=== PATIENT | female | born 1975 | race African-American/Black ===

== ENCOUNTER 2018-06-18 13:39 | Emergency (ER) | payer OTHER ==
[~2018-06-18] VITALS: Ht 177.8 cm; Wt 188.7 kg
--- NOTE | 2018-06-18 13:49 | EKG ---
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 : 1975 Requested By: Juan Lopez Order Number: [id number] MD: Jimmy He Measurements Intervals [place] Rate: 93 P: 54 CA: 153 QRS: -7 QRSD: 121 T: 41 QT: 409 QTc: 509 Interpretive Statements Sinus rhythm Left ventricular hypertrophy No previous ECG available for comparison Electronically Signed On 06-18-2018 13:49:11 DESK REPORTER by Jimmy He [email or web address] ��������������������������������������������� <ELECTRONICALLY SIGNED> ���������������������������������������� By: Jimmy He MD ��������������������������������������������� 06/18/18 1349 1346 1346 Jimmy He MD /EPI
[2018-06-18 14:45] LABS: ABSOLUTE NEUTROPHILS 3.5 thou/uL (1.4-8.2); BASOPHILS 0.9 % (0.0-2.0); EOSINOPHILS 1.6 % (0.0-3.0); HEMATOCRIT 34.1 % (37.0-47.0); LYMPHOCYTES 29.8 % (24.0-44.0); MCHC 32.1 g/dL (28.0-37.0); MONOCYTES 8.5 % (1.0-8.0); PLATELET COUNT 406 thou/uL (150-400); POLYS 59.2 % (36.0-66.0); RBC 4.06 mil/uL (4.20-5.00); RDW 16.5 % (10.5-14.5)
[2018-06-18 14:55] LABS: ANION GAP 8 mmol/L (7-16); BUN 11 mg/dL (7-18); CALCIUM 9.2 mg/dL (8.5-10.1); CHLORIDE 101 mmol/L (98-107); CO2 30 mmol/L (21-32); CREATININE 0.7 mg/dL (0.6-1.0); GLUCOSE 108 mg/dL (74-106); POTASSIUM 4.1 mmol/L (3.5-5.1); SODIUM 139 mmol/L (136-145)
[2018-06-18 15:03] LABS: ALBUMIN 3.3 g/dL (3.4-5.0); LIPASE 85 U/L (73-393); SGOT 14 U/L (15-37); SGPT 21 U/L (30-65); TOTAL BILIRUBIN 0.2 mg/dL (<0.1-1.0); TOTAL PROTEIN 7.9 g/dL (6.4-8.2); TROPONIN-I <0.06 ng/mL (<0.06)
[2018-06-18 16:09] LABS: URINE BLOOD 3+ (Negative); URINE CLARITY CLOUDY; URINE COLOR RED; URINE GLUCOSE-RANDOM* NEGATIVE (Negative); URINE KETONES NEGATIVE (Negative); URINE LEUKOCYTES-REFLEX TRACE (Negative); URINE NITRITE-REFLEX NEGATIVE (Negative); URINE PROTEIN (DIPSTICK) 1+ (Negative); URINE SPECIFIC GRAVITY 1.025 (1.005-1.035); URINE UROBILINOGEN 0.2 E.U./dl (0.2-1.0)
[2018-06-18 16:10] LABS: ICTOTEST (BILI CONFIRMATORY) Negative (Negative); URINE BILIRUBIN NEGATIVE (Negative)
[2018-06-18 16:18] LABS: BACTERIA-REFLEX 1-9 Few /HPF (None Seen); CASTS None Seen /LPF (None Seen); CRYSTALS None Seen /LPF (None Seen); SQUAMOUS 0-3 Few /LPF (0-3); URINE RBC >20 Many /HPF (0-2); URINE WBC-REFLEX 0-5 Rare /HPF (0-5)
[2018-06-18 17:21] VITALS: BP 143/65
[2018-06-19] MEDS ORDERED: VENLAFAXINE HC150 M1 PO (20:23)
[2018-06-19] MEDS ORDERED: XANAX 0.5 MG0.5 MG PO (20:24)
[2018-06-19] MEDS ORDERED: NORCO 5-325 TA1 EACH PO (23:04)
[2018-06-19] MEDS ORDERED: IBUPROFEN 800800 M1 PO (23:05)
[2018-06-19] MEDS ORDERED: VENTOLIN HFA 1818 GM INH (23:06)
== END 2018-06-18 17:28 | disposition home or self-care (01) ==
LOC: ER 13:39
PROVIDERS: Emergency Medicine
DX: K42.9 Umbilical hernia without obstruction or gangrene (principal); Z88.8 Allergy status to other drugs, medicaments and biological substances

== ENCOUNTER 2018-06-19 18:55 | Inpatient (IN) | payer OTHER ==
[~2018-06-19] VITALS: Ht 177.8 cm; Wt 180.1 kg
[2018-06-19 18:58] VITALS: BP 172/111
[2018-06-19] MEDS ORDERED: VENLAFAXINE HC150 M1 PO (20:23)
[2018-06-19] MEDS ORDERED: XANAX 0.5 MG0.5 MG PO (20:24)
[2018-06-19] MEDS ORDERED: NORCO 5-325 TA1 EACH PO (23:04)
[2018-06-19] MEDS ORDERED: IBUPROFEN 800800 M1 PO (23:05)
[2018-06-19] MEDS ORDERED: VENTOLIN HFA 1818 GM INH (23:06)
--- NOTE | 2018-06-19 23:20 | NUR ---
AFTER MULTIPLE LABS ATTEMPS BY MULTIPLE NURSE/EMT AND LAB X2. NO LABS WERE ABLE TO BE OBTAINE. ER PHYSICIAN NOTIFED AND AWARE. PT WAS OFFERED NG TUBE TO HELP WITH HER SYMPOMS AND PT DECLINED.
[2018-06-19 23:31] VITALS: BP 147/81
[2018-06-19 23:50] VITALS: BP 147/81
[2018-06-20 00:12] VITALS: BP 130/95
--- NOTE | 2018-06-20 04:05 | NUR ---
PT ARRIVED TO UNIT APPROX 2350, ABLE TO WALK FROM W/C TO BED, ADMISSION AND ASSESSMENT COMPLETED, CONSENTS SIGNED. PT A&Ox4, ANXIOUS ABOUT POC, DISCUSSED EXPECTED TREATMENT OPTIONS INCLUDING THE SURGEON'S ORDER FOR AN NG TUBE. PT REPORTS PAIN JUST ABOVE THE NAVEL WHERE A FIRM MASS IS PROTRUDING WELL THE LLQ OF THE ABD. ALSO C/O NAUSEA; INITIALLY UPON ARRIVAL HAD SMALL AMOUNT OF EMESIS, BUT LATER VOMITED 500 ML DARK BROWN LIQUID. GAVE DOSE OF ZOFRAN. OBTAINED ORDER FOR ONE TIME DOSE IV ATIVAN AND WAS ABLE TO PLACE AN 18g NG TUBE INTO THE RIGHT NARE, INITIAL PLACEMENT AT 60 CM, POSITIVE FOR AUSCULTATED BUBBLE BUT AWAITING FINAL CONFIRMATION BY KUB, CURRENTLY HOOKED TO LIS WITH SMALL AMOUNT OF BROWN LIQUID OUTPUT. IV FLUIDS INFUSING. ER AND LAB UNABLE TO GET BLOOD SPECIMEN, LAB REPORTED THEY WILL TRY AGAIN THIS AM. MAINTAINING NPO STATUS, NO OTHER CONCERNS, WILL CONTINUE TO MONITOR.
[2018-06-20 04:50] VITALS: BP 145/90
[2018-06-20 05:05] LABS: BASOPHILS 0.3 % (0.0-2.0); EOSINOPHILS 0.2 % (0.0-3.0); HEMATOCRIT 33.7 % (37.0-47.0); HEMOGLOBIN 11.2 gm/dL (12.0-15.0); LYMPHOCYTES 14.8 % (24.0-44.0); MCH 27.7 pg (26.0-34.0); MCHC 33.3 g/dL (28.0-37.0); MCV 83.1 fL (80.0-100.0); MONOCYTES 6.8 % (1.0-8.0); PLATELET COUNT 456 thou/uL (150-400); POLYS 77.9 % (36.0-66.0); RBC 4.06 mil/uL (4.20-5.00); RDW 16.4 % (10.5-14.5); WBC 11.5 thou/uL (4.0-11.0)
[2018-06-20 05:20] LABS: ALBUMIN 3.3 g/dL (3.4-5.0); CALCIUM 9.4 mg/dL (8.5-10.1); CREATININE 0.7 mg/dL (0.6-1.0); DIRECT BILIRUBIN 0.1 mg/dL (<0.1-0.3); POTASSIUM 4.1 mmol/L (3.5-5.1); TOTAL BILIRUBIN 0.7 mg/dL (<0.1-1.0); TOTAL PROTEIN 8.1 g/dL (6.4-8.2)
[2018-06-20 07:44] VITALS: BP 135/83
[2018-06-20 14:08] VITALS: BP 133/73
--- NOTE | 2018-06-20 15:15 | NUR ---
PT ADMITTED RELATED TO HERNIA, SBO. CM REVIEWED CHART AND SPOKE WITH CARE TEAM. CM MET WITH PT AT BEDSIDE THIS DAY. PT IS A&OX4. CM ROLE INTRODUCED. PT INDICATED SHE LIVES IN A HOUSE WITH HER SPOUSE AND THEIR TWO CHILDREN. PT INDICATED THERE ARE 5 STEPS TO ENTER AND 5 STEPS INSIDE. 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 PT INDICATED NO DME OR HH HX. PT'S PCP IS DR. MINE WOLFF AT [facility]. PT INDICATED SHE IS PATIENT PAY AND IS RECEPTIVE TO MEETING WITH [employer]. FACESHEET FAXED. PT INDICATED SHE PLANS TO RETURN HOME ONCE MEDICALLY STABLE. CM TO FOLLOW INDICATED WITH DC PLANNING.
--- NOTE | 2018-06-20 15:47 | NUR ---
PT WENT TO OR AT 0700 AND RETURNED TO ROOM AT 1335 ALERT AND IN NO ACUTE DISTRESS. PT DOING WELL. PAIN UNDER CONTROL. REMAINS NPO. NG TO LIS W/ BROWN OUTPUT. IRRIGATED FOR PATENTCY. IV FLUIDS INFUSING. VSS. WILL AMBULATE IN HALLS LATER ON. PARENTS AT BEDSIDE.
[2018-06-20 16:12] VITALS: BP 147/91
[2018-06-20 19:41] VITALS: BP 141/81
[2018-06-21 05:27] VITALS: BP 136/74
[2018-06-21 06:12] LABS: ABSOLUTE NEUTROPHILS 10.6 thou/uL (1.4-8.2); BASOPHILS 0.4 % (0.0-2.0); EOSINOPHILS 0.3 % (0.0-3.0); HEMATOCRIT 32.3 % (37.0-47.0); HEMOGLOBIN 10.3 gm/dL (12.0-15.0); LYMPHOCYTES 16.8 % (24.0-44.0); MCH 27.1 pg (26.0-34.0); MCV 84.9 fL (80.0-100.0); MONOCYTES 9.8 % (1.0-8.0); PLATELET COUNT 391 thou/uL (150-400); POLYS 72.7 % (36.0-66.0); WBC 14.6 thou/uL (4.0-11.0)
[2018-06-21 06:23] LABS: CALCIUM 8.4 mg/dL (8.5-10.1); CREATININE 0.8 mg/dL (0.6-1.0); POTASSIUM 3.8 mmol/L (3.5-5.1)
[2018-06-21 07:16] VITALS: BP 131/60
--- NOTE | 2018-06-21 07:16 | NUR ---
Gallegos out; patient WBC elevated, the staff rechecked patient's temperature due to the concern of infection risk, see the chart.
--- NOTE | 2018-06-21 11:59 | NUR ---
ASSUMED PATIENT CARE AT 0715 A.M. PATIENT STATED NO PAIN AT THAT TIME. IV FLUID RUNNING, NS 100CC/HR, NG SUCTION RUNNING EFFECTIVELY, O2 TUBING IN PLACE AND ON. NURSE ASSISTED PATIENT TO BR WITH WALKER AT 0745 A.M. PATIENT CLEANSED PERINEAL AREA PER SELF, ON MENSTRUAL PERIOD. ADMINISTERED FENTNYL 50 MCG FOR PAIN, IV PUSH AT 10:45 A.M. PATIENT RESTING COMFORTABLY AT THIS TIME. CONTINUE TO MONITOR.
--- NOTE | 2018-06-21 13:14 | NUR ---
VERBAL ORDER PER SURGEON; DC NG TUBE, CHANGE DIET TO LIQUID DIET. NG TUBE DISCONTINUED AT THIS TIME. DIET ORDER CHANGED TO LIQUID.
--- NOTE | 2018-06-21 16:07 | NUR ---
IV FLUIDS DISCONTINUED PER ORDER OF 06/20/18, S.L IN PLACE RIGHT FOREARM. R HAND IV S.L. DISCONTINUED.
[2018-06-21 16:22] VITALS: BP 121/59
[2018-06-21 20:30] VITALS: BP 125/92
--- NOTE | 2018-06-21 22:19 | NUR ---
ASSUMED PT CARE 190. PT ALERT AND ORIENTED. DENIES PAIN AT THIS TIME. PT DENIES N/V. TOLERATING CLEAR LIQUID DIET WELL. IV DRESSING C/D/I, NO SIGNS OF INFILTRATION. PT REPORTS PASSING GAS. PT CALL LIGHT AND PERSONAL BELONINGS OLIVIA CASTELLANO, WILL CONTINUE POC UNTIL EOS.
[2018-06-22 04:30] VITALS: BP 111/48; BP 143/70
[2018-06-22 05:46] LABS: ABSOLUTE NEUTROPHILS 7.1 thou/uL (1.4-8.2); BASOPHILS 0.4 % (0.0-2.0); EOSINOPHILS 1.9 % (0.0-3.0); HEMATOCRIT 32.8 % (37.0-47.0); HEMOGLOBIN 10.4 gm/dL (12.0-15.0); LYMPHOCYTES 23.3 % (24.0-44.0); MCHC 31.8 g/dL (28.0-37.0); MCV 84.8 fL (80.0-100.0); MONOCYTES 8.9 % (1.0-8.0); PLATELET COUNT 340 thou/uL (150-400); POLYS 65.5 % (36.0-66.0); RBC 3.87 mil/uL (4.20-5.00); RDW 16.8 % (10.5-14.5); WBC 10.9 thou/uL (4.0-11.0)
[2018-06-22 05:58] LABS: CALCIUM 8.6 mg/dL (8.5-10.1); CREATININE 0.6 mg/dL (0.6-1.0); POTASSIUM 4.1 mmol/L (3.5-5.1)
[2018-06-22 08:00] VITALS: BP 137/71
--- NOTE | 2018-06-22 08:25 | NUR ---
ASSUMED CARE OF PT AT 0700. ASSESSMENT COMPLETED. A&O,X4. S/P UMBILICAL HERNIA REPAIR, 3 LAP SITES WITH DERMABOND NOTED. NOT REQUESTING PAIN MEDS AT THIS TIME. DENIES N/V/D. TOLERATING CLEARS DIET. LAST BOWEL MOVEMENT 3/6, WILL ASK PHYSICIAN ABOUT STOOL SOFTENER. VSS. PT GOAL TO WALK MORE TODAY. WILL CONTINUE TO MONITOR.
[2018-06-22] MEDS ORDERED: NORCO 5-325 TA1 EACH PO (09:18)
[2018-06-22] MEDS ORDERED: SENNA-S TABLET1 EACH PO (09:18)
[2018-06-22 11:11] VITALS: BP 137/71
--- NOTE | 2018-06-22 15:45 | NUR ---
PT REPORTED NO BM SINCE 06/18, PHYSICIAN NOTIFIED. NEW ORDER FOR SUPPOSITORY GIVEN ORDERED. PT REPORTED ONE BOWEL MOVEMENT. PT TOLERATED SOFT BLAND DIET, NO N/V. DISCHARGE ORDERS. D/C INFORMATION DISCUSSED WITH PT AT BEDSIDE. NEW SCRIPS AND CARENOTES GIVEN. IV REMOVED, NO BLEEDING. PT DRESSED IN PERSONAL CLOTHING, BELONGINGS COLLECTED. PT LEFT IN STABLE CONDITION VIA WHEELCHAIR AT 15:45. STATES NO QUESTIONS OR COMPLAINTS.
--- NOTE | 2018-06-24 17:07 | PATH ---
[facility] [place] [address] PATHOLOGY RPT PROCEDURE Name: ARASELI RUIZOZZY Long Room #: 432-P [facility] IN M.R.#: [id number] ������������������ Admission: 06/19/18 ������������������ Date of : 75 Discharge: 06/22/18 Report #: [id number] Path Case #: [id number] [facility] Accession Number: [id number] . 01 Material submitted: . UMBILICAL HERNIA SAC AND CONTENTS . 01 Clinical history: . Umbilical hernia . 02 Diagnosis: Incarcerated ventral and umbilical hernias, repair: - Congested fibrovascular connective tissue associated with chronic inflammation and reactive changes, compatible with incarceration. - Fragments of reactive and congested fibroadipose tissue. - Medium-sized artery and vessels, compatible with the vascular bundle (identified as tube- like segment in gross dictation). (IUV:damon; 06/24/2018) MBR/06/24/2018 . 02 Electronically signed: . Mayte Urias MD, Pathologist NPI- [id number] . 01 Gross description: . Received in formalin labeled "Christine Ruiz, umbilical hernia sac and contents," is a 10.4 x 7.8 x 2.6 cm aggregate of pérez-fabian fibromembranous tissue fragments admixed with yellow, lobulated adipose tissue. Serial sectioning reveals yellow-fabian cut surfaces. Multiple fabian-brown possible lymph nodes are noted upon sectioning, ranging from 0.6 to 1.4 cm in maximum dimension. Also noted upon sectioning is a tubular segment of firm, pale fabian tissue measuring 4.2 cm in length by 0.5 cm in diameter; sectioning through this segment reveals a possible pinpoint lumen. Wood Planer fibromembranous and adipose tissue are submitted in cassette A1. Wood Planer possible lymph nodes are submitted in cassette A2. Wood Planer tubular tissue with possible lumen is submitted in cassette A3. (DAC; 06/23/2018) XDC/XDC . 02 Pathologist provided ICD-10: K42.9, K43.9 . 02 CPT . 821392 Specimen Comment: A courtesy copy of this report has been sent to Specimen Comment: [phone], [place] [address] PATHOLOGY RPT PROCEDURE Name: CHRISTINE RUIZ Room #: 432-P [facility] IN M.R.#: [id number] ������������������ Admission: 06/19/18 ������������������ Date of : 75 Discharge: 06/22/18 Report #: [id number] Path Case #: [id number] Specimen Comment: Report sent to and Performed at: [address], [place] [id number] MD Pipe Krishna MD Phone: [phone] Performed at: [address] [id number] MD Mayte Urias MD Phone: [phone]
== END 2018-06-22 15:51 | disposition home or self-care (01) | DRG 354 ==
LOC: ER 18:55 → 4E 23:30 → EROBS 23:30 → 4E 23:50
PROVIDERS: Emergency Medicine; Surgery; ADMIT Hospitalist
PROC: 0WUF4JZ Supplement Abdominal Wall with Synthetic Substitute, Percutaneous Endoscopic Approach (ICD-10-PCS; principal; 2018-06-20)
DX: K42.0 Umbilical hernia with obstruction, without gangrene (principal); Z68.43 Body mass index [BMI] 50.0-59.9, adult; J45.909 Unspecified asthma, uncomplicated; E66.01 Morbid (severe) obesity due to excess calories; K43.6 Other and unspecified ventral hernia with obstruction, without gangrene; I10 Essential (primary) hypertension; F41.9 Anxiety disorder, unspecified; Z87.81 Personal history of (healed) traumatic fracture; Z79.899 Other long term (current) drug therapy; Z88.8 Allergy status to other drugs, medicaments and biological substances; Z82.49 Family history of ischemic heart disease and other diseases of the circulatory system; Z84.1 Family history of disorders of kidney and ureter; Z82.3 Family history of stroke
CPT/HCPCS: 10783; 50010; 50101; 50249; 50386; 50455; 50555; 50558; 50962; 51489; 52265; 53307; 53310; 54022; 54118; 56462; 56525; 56526; 57092; 57187; 62110; 62900; 70005